=== PATIENT | female | born 1975 | race Caucasian/White ===

== ENCOUNTER → 2016-05-07 | Outpatient (CLI) | payer BC ==
[2016-05-07 15:47] LABS: Appearance,Urine Clear (Clear); Bilirubin,Urine Negative (Negative); Glucose,Urine (UA) Negative (Negative); Ketones,Urine Negative (Negative); Leukocyte Esterase,Urine Negative (Negative); Mucus,Urine Rare /hpf; Nitrite,Urine Negative (Negative); Particle Count 5275; Protein,Urine Trace (Negative); RBC,Urine >182 /hpf (0-5); Specific Gravity,Urine 1.017 (1.001-1.035); Squamous Epithelial Cell,Urine <1 /hpf (0-4); UA Billing (MACRO vs. MICRO) MICRO; Urobilinogen,Urine <2.0 mg/dL (<2.0); WBC,Urine 3 /hpf (0-5)
[2016-05-07 15:55] LABS: ALT 23 U/L (9-52); AST 17 U/L (14-36); Alkaline Phosphatase 94 U/L (38-126); Anion Gap 13 mmol/L; Blood Urea Nitrogen 13 mg/dL (7-17); Calcium 9.4 mg/dL (8.4-10.2); Carbon Dioxide 25 mmol/L (22-30); Chloride 104 mmol/L (98-107); Glucose 97 mg/dL (74-99); Non-African American GFR(MDRD) >60 (>60 ml/min/1.73 sqM); Sodium 142 mmol/L (137-145); Total Bilirubin 0.7 mg/dL (0.2-1.3); Total Protein 7.9 g/dL (6.3-8.2)
== END ==
LOC: LABWHC1 15:25
PROVIDERS: ATTEND Internal Medicine Clinical Cardiac Electrophysiology
DX: R00.2 Palpitations (principal)
CPT/HCPCS: 36415; 80053; 81001; 84443

== ENCOUNTER → 2016-06-01 | Outpatient (CLI) | payer BC ==
--- NOTE | 2016-06-01 10:12 | US ---
EXAMINATION TYPE: US abdomen complete DATE OF EXAM: 06/01/2016 8:10 AM COMPARISON: NONE CLINICAL HISTORY: R10.84 Gen Abd Pain. RLQ pain, nausea EXAM MEASUREMENTS: Liver Length: 18.4 cm Gallbladder Wall: 0.2 cm CBD: 0.6 cm Spleen: 10.2 cm Right Kidney: 12.8 x 4.4 x 6.2 cm Left Kidney: 13.0 x 5.0 x 4.7 cm Pancreas: obscured by overlying bowel content Liver: enlarged, attenuating, cystic area left lobe = 0.9 x 0.5 x 0.7cm Gallbladder: multiple stones Evidence for sonographic Beckwith's sign: No CBD: upper limits of normal Spleen: appears wnl Right Kidney: calcification upper pole = 0.7cm Left Kidney: no evidence of hydronephrosis or mass Upper IVC: wnl Abd Aorta: visualized portions appear wnl Scanned RLQ within patient's area of concern, no significant abnormality visualized by ultrasound at this time IMPRESSION: 1. Liver is heterogeneous which could be seen with hepatitis or fatty infiltration. Less than 1 cm hy poechoic lesion too small to characterize. 2. Nonobstructing right renal calculus. 3. Cholelithiasis
== END | disposition home or self-care (01) ==
LOC: RADUSWWP 07:33
PROVIDERS: ATTEND Family Medicine
DX: K80.20 Calculus of gallbladder without cholecystitis without obstruction (principal); N20.0 Calculus of kidney; K76.9 Liver disease, unspecified
CPT/HCPCS: 76700

== ENCOUNTER → 2017-05-16 | Outpatient (CLI) | payer BC ==
[2017-05-17 00:42] LABS: Anti-DNA, DS unit <1.0 IU/mL; DNA Double-Stranded NEGATIVE (NEGATIVE)
[2017-05-17 00:51] LABS: Rheumatoid Factor 5 IU/mL (0-15)
== END | disposition home or self-care (01) ==
LOC: LABWHC1 16:25
PROVIDERS: ATTEND Psychiatry & Neurology Neurology
DX: M79.1 Myalgia (principal); R59.1 Generalized enlarged lymph nodes
CPT/HCPCS: 36415; 82306; 82550; 82607; 82747; 85652; 86038; 86225; 86431; 86618

== ENCOUNTER → 2017-06-04 | Outpatient (CLI) | payer BC ==
[2017-06-04 16:34] LABS: Basophils # (A) 0.1 k/uL (0-0.2); Basophils % (A) 1 %; Eosinophils # (A) 0.2 k/uL (0-0.7); Eosinophils % (A) 2 %; HCT 39.8 % (34.0-46.0); HGB 12.9 gm/dL (11.4-16.0); Lymphocytes # (A) 2.7 k/uL (1.0-4.8); Lymphocytes % (A) 37 %; MCH 26.8 pg (25.0-35.0); MCHC 32.3 g/dL (31.0-37.0); Mean Platelet Volume 6.8; Monocytes # (A) 0.3 k/uL (0-1.0); Monocytes % (A) 4 %; Neutrophils % (A) 54 %; Platelet Count 296 k/uL (150-450); RDW 13.6 % (11.5-15.5); WBC 7.3 k/uL (3.8-10.6)
[2017-06-04 16:51] LABS: ALT 23 U/L (9-52); AST 19 U/L (14-36); Albumin 3.6 g/dL (3.5-5.0); Alkaline Phosphatase 74 U/L (38-126); Anion Gap 12 mmol/L; Blood Urea Nitrogen 16 mg/dL (7-17); Calcium 9.4 mg/dL (8.4-10.2); Carbon Dioxide 28 mmol/L (22-30); Chloride 102 mmol/L (98-107); Glucose 109 mg/dL (74-99); Potassium 3.5 mmol/L (3.5-5.1); Sodium 142 mmol/L (137-145); Total Bilirubin 0.3 mg/dL (0.2-1.3); Total Protein 6.8 g/dL (6.3-8.2)
[2017-06-04 17:08] LABS: T4, Free (Free Thyroxine) 0.92 ng/dL (0.78-2.19)
== END | disposition home or self-care (01) ==
LOC: LABWHC1 16:19
PROVIDERS: ATTEND Psychiatry & Neurology Neurology
DX: M54.5 Low back pain (principal); M54.2 Cervicalgia; R63.5 Abnormal weight gain; R59.1 Generalized enlarged lymph nodes
CPT/HCPCS: 36415; 80053; 84439; 84443; 85025

== ENCOUNTER → 2017-06-11 | Outpatient (CLI) | payer BC ==
--- NOTE | 2017-06-11 17:12 | US ---
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 Intermittent neck pain and swell ing x couple years GLAND SIZE: Right Lobe: 4.6 x 1.3 x 1.7 cm Overall Parenchyma: homogenous Left Lobe: 4.3 x 1.4 x 1.4 cm Overall Parenchyma: homogeneous Isthmus Thickness: 0.3 cm NODULES RIGHT: # of nodules measured on right: 0 LEFT: # of nodules measured on left: 2 1. 0.7 X 0.4 x 0.7 cm hypoechoic solid nodule at the upper pole with well-defined margins. This nod ule is wider than tall and shows intranodular vascularity. Prior size: no previous 2. 0.8 X 0.5 x 0.6 cm hypoechoic solid nodule at the mid pole with well-defined margins. This nodule is wider than tall and shows intranodular vascularity. Prior size: no previous ISTHMUS: # of nodules measured in the isthmus: 0 Bilateral neck scanned, bilateral hypoechoic structures seen with largest on right = 2.5cm and larges t on left = 1.8cm, probable lymph nodes. IMPRESSION: Small hypoechoic oval-shaped nodules of doubtful significance. No dominant thyroid mass. Anterior tri angle 18 x 9 mm left side cervical lymph node. 25 x 9 mm enlarged right side cervical lymph node. Lym ph nodes appear to have normal morphology.
== END | disposition home or self-care (01) ==
LOC: RADUSWWP 16:09
PROVIDERS: ATTEND Family Medicine
DX: R59.0 Localized enlarged lymph nodes (principal)
CPT/HCPCS: 76536

== ENCOUNTER → 2017-10-18 | Outpatient (CLI) | payer BC | END | disposition home or self-care (01) | LOC: LABWHC1 16:58 | PROVIDERS: ATTEND Family Medicine | DX: E04.2 Nontoxic multinodular goiter (principal); R59.0 Localized enlarged lymph nodes | CPT/HCPCS: 36415; 82533 ==

== ENCOUNTER → 2017-10-18 | Outpatient (CLI) | payer BC | END | disposition home or self-care (01) | LOC: LABWHC1 07:06 | PROVIDERS: ATTEND Family Medicine | DX: R59.9 Enlarged lymph nodes, unspecified (principal); R53.83 Other fatigue; M25.50 Pain in unspecified joint | CPT/HCPCS: 36415; 82533; 86162 ==

== ENCOUNTER → 2017-11-06 | Outpatient (CLI) | payer BC ==
[2017-11-06 16:35] LABS: Anion Gap 10 mmol/L; Blood Urea Nitrogen 17 mg/dL (7-17); Calcium 9.3 mg/dL (8.4-10.2); Carbon Dioxide 27 mmol/L (22-30); Chloride 105 mmol/L (98-107); Glucose 93 mg/dL (74-99); Magnesium 1.8 mg/dL (1.6-2.3); Potassium 4.2 mmol/L (3.5-5.1); Sodium 142 mmol/L (137-145)
== END | disposition home or self-care (01) ==
LOC: LABWHC1 15:42
PROVIDERS: ATTEND Internal Medicine Clinical Cardiac Electrophysiology
DX: I10 Essential (primary) hypertension (principal)
CPT/HCPCS: 36415; 80048; 83735

== ENCOUNTER → 2018-06-05 | Outpatient (CLI) | payer BC ==
--- NOTE | 2018-06-06 07:37 | US ---
EXAMINATION TYPE: US thyroid st tissue head/neck DATE OF EXAM: 06/05/2018 COMPARISON: US dated 06/11/2017 CLINICAL HISTORY: R59.0 Cervical lymphadenopathy; prior thyroid US/ nodules; palpables noted by patie nt at submandibular area bilaterally GLAND SIZE: Right Lobe: 3.9 x 1.3 x 1.2 cm Overall Parenchyma: homogenous Left Lobe: 4.3 x 1.4 x 1.5 cm Overall Parenchyma: homogeneous Isthmus Thickness: 0.3 cm NODULES RIGHT: # of nodules measured on right: 0 LEFT: # of nodules measured on left: 2 1. 0.5 X 0.4 x 0.4 cm hypoechoic solid nodule at the upper pole with well-defined margins. This no dule is wide as is tall and shows no intranodular vascularity. Prior size: 0.7 x 0.7 x 0.4 cm 2. 0.8 X 0.5 x 0.5 cm hypoechoic solid nodule at the mid pole with well-defined margins. This nodul e is wide as is tall and shows no intranodular vascularity. Prior size: 0.8 x 0.6 x 0.5 cm ISTHMUS: # of nodules measured in the isthmus: 0 Bilateral neck scanned: right submandibular at area of palpable an oval hypoechoic bernardo area seen = 1.0 x 1.1 x 0.4cm; at left submandibular palpable area a hypoechoic node is imaged = 1.4 x 1.2 x 0.5 cm. IMPRESSION: Benign-appearing neck ultrasound. Contrast-enhanced CT of the neck could be performed for better eval uation. Follow-up as indicated.
== END ==
LOC: RADUSWWP 16:47
PROVIDERS: ATTEND Family Medicine
DX: R59.0 Localized enlarged lymph nodes (principal)
CPT/HCPCS: 76536

== ENCOUNTER → 2018-08-08 | Outpatient (CLI) | payer BC ==
--- NOTE | 2018-08-08 12:14 | US ---
EXAMINATION TYPE: US kidneys/renal and bladder DATE OF EXAM: 08/08/2018 COMPARISON: US CLINICAL HISTORY: R31.9 Hematuria. Patient stated hematuria, noted by physician's office, was during patient's menstrual cycle; bilateral flank pain x few weeks EXAM MEASUREMENTS: Right Kidney: 11.0 x 6.6 x 4.5 cm Left Kidney: 12.4 x 5.1 x 5.0 cm Post Void Residual Volume: 0 mL Right Kidney: No hydronephrosis seen; calcified parallel vessels johnson seen in upper lateral cortex Left Kidney: No hydronephrosis or masses seen Bladder: wnl Bilateral Jets seen: yes Normal Post Void Residual: yes There is no evidence for hydronephrosis at this point in time. No nephrolithiasis is seen. No blaine s are identified. The urinary bladder is anechoic. Bilateral ureteral jets are seen. IMPRESSION: No hydronephrosis or nephrolithiasis. Renal arterial calcifications are incidentally noted.
== END | disposition home or self-care (01) ==
LOC: RADUSWWP 11:07
PROVIDERS: ATTEND Family Medicine
DX: I70.1 Atherosclerosis of renal artery (principal)
CPT/HCPCS: 76770

== ENCOUNTER → 2018-08-08 | Outpatient (CLI) | payer BC ==
--- NOTE | 2018-08-12 11:21 | MM ---
Reason for exam: screening (asymptomatic). Last mammogram was performed 1 year and 8 months ago. History: Excisional biopsy. Physical Findings: A clinical breast exam by your physician is recommended on an annual basis and results should be correlated with mammographic findings. MG 3D Screening Mammo W/Cad Bilateral CC and MLO view(s) were taken. Prior study comparison: December 18, 2016, mammogram. June 02, 2013, mammogram. There are scattered fibroglandular densities. No significant changes when compared with prior studies. ASSESSMENT: Negative, BI-RAD 1 RECOMMENDATION: Routine screening mammogram of both breasts in 1 year.
== END | disposition home or self-care (01) ==
LOC: RADMAMWWP 11:04
PROVIDERS: ATTEND Obstetrics & Gynecology
DX: Z12.31 Encounter for screening mammogram for malignant neoplasm of breast (principal)
CPT/HCPCS: 77063; 77067

== ENCOUNTER → 2018-08-21 | Outpatient (CLI) | payer BC ==
[2018-08-22 01:51] LABS: African American GFR (CKD) 123.9 (60.0-200.0)
== END | disposition home or self-care (01) ==
LOC: LABWHC1 16:32
PROVIDERS: ATTEND Otolaryngology
DX: K30 Functional dyspepsia (principal); R53.83 Other fatigue; J30.89 Other allergic rhinitis
CPT/HCPCS: 36415; 82150; 82565; 83690; 84450; 84460; 84520

== ENCOUNTER 2018-11-09 20:26 | Emergency (ER) | payer BC ==
[2018-11-09 20:39] VITALS: RESP 18
[2018-11-09] MEDS ORDERED: SODIUM CHLORIDE 0.9% 1,000 ML IV STA ×2 (21:13)
[2018-11-09] MEDS ORDERED: PANTOPRAZOLE 40 MG/10 ML VIAL IVP STA (21:13)
[2018-11-09] MEDS ORDERED: KETOROLAC 30 MG/ML 1 ML VIAL IVP STA (21:13)
[2018-11-09] MEDS ORDERED: ONDANSETRON 4 MG/2 ML VIAL IVP STA (21:13)
[2018-11-09] MEDS ORDERED: HYDROmorphone 1 MG/ML 1 ML SYRINGE IVP STA (21:14)
[2018-11-09] MEDS ORDERED: ACETAMINOPHEN TAB 500 MG TAB PO STA (21:16)
[2018-11-09 21:44] LABS: Appearance,Urine Clear (Clear); Bilirubin,Urine Negative (Negative); Blood,Urine Negative (Negative); Color,Urine Colorless; Glucose,Urine (UA) Negative (Negative); Ketones,Urine Negative (Negative); Leukocyte Esterase,Urine Negative (Negative); Nitrite,Urine Negative (Negative); PH, Urine 5.5 (5.0-8.0); Protein,Urine Negative (Negative); Specific Gravity,Urine 1.002 (1.001-1.035); Urobilinogen,Urine <2.0 mg/dL (<2.0)
[2018-11-09 21:50] LABS: Basophils # (A) 0.1 k/uL (0-0.2); Basophils % (A) 1 %; Eosinophils # (A) 0.2 k/uL (0-0.7); Eosinophils % (A) 2 %; HCT 37.8 % (34.0-46.0); HGB 12.4 gm/dL (11.4-16.0); Lymphocytes # (A) 2.5 k/uL (1.0-4.8); Lymphocytes % (A) 22 %; MCH 26.6 pg (25.0-35.0); MCHC 32.7 g/dL (31.0-37.0); MCV 81.2 fL (80.0-100.0); Monocytes # (A) 0.7 k/uL (0-1.0); Monocytes % (A) 6 %; Neutrophils # (A) 7.6 k/uL (1.3-7.7); Neutrophils % (A) 68 %; Platelet Count 269 k/uL (150-450); RBC 4.65 m/uL (3.80-5.40); RDW 14.3 % (11.5-15.5); WBC 11.2 k/uL (3.8-10.6)
[2018-11-09 21:57] LABS: INR 0.9 (<1.2); Partial Thromboplastin Time 24.7 sec (22.0-30.0); Prothrombin Time 10.1 sec (9.0-12.0)
[2018-11-09 22:11] LABS: ALT 20 U/L (9-52); AST 17 U/L (14-36); African American GFR (CKD) >90 (>60 ml/min/1.73 sqM); Albumin 3.5 g/dL (3.5-5.0); Alkaline Phosphatase 87 U/L (38-126); Amylase 43 U/L (30-110); Anion Gap 7 mmol/L; Blood Urea Nitrogen 10 mg/dL (7-17); Calcium 8.3 mg/dL (8.4-10.2); Carbon Dioxide 23 mmol/L (22-30); Chloride 107 mmol/L (98-107); Glucose 95 mg/dL (74-99); Sodium 137 mmol/L (137-145); Total Bilirubin 0.5 mg/dL (0.2-1.3); Total Protein 6.7 g/dL (6.3-8.2)
--- NOTE | 2018-11-09 22:21 | ED ---
Abdominal Pain HPI - General Chief Complaint: Abdominal Pain Stated Complaint: Abd pain Time Seen by Provider: 11/09/18 20:46 Source: patient, RN notes reviewed, old records reviewed Mode of arrival: ambulatory Limitations: no limitations - History of Present Illness Initial Comments: This Patient is a 43-year-old female presents emergency department today with 3 days of right lower quadrant and right flank pain. Patient reports that she went to urgent care and they diagnosed her with muscle spasm. Reports over the trace amount hematuria in her urine sample. Patient states that she's had a low-grade temperature. No nausea or vomiting. She reports she has history of IBS and frequent fluctuation between soft and hard stools. - Related Data Previous Rx's Medication Instructions Recorded HYDROcodone/APAP 5-325MG [Saxon 1 tab PO Q6HR PRN #10 tab 11/09/18 5-325] Allergies Allergy/AdvReac Type Severity Reaction Status Date / Time Penicillins Allergy Unknown Verified 11/09/18 20:39 Childhood Sulfa (Sulfonamide Allergy Rash/Hives Verified 11/09/18 20:40 Antibiotics) sulfamethoxazole Allergy Unknown Verified 11/09/18 20:40 [From Bactrim] Childhood trimethoprim [From Bactrim] Allergy Unknown Verified 11/09/18 20:40 Childhood Review of Systems ROS Statement: Those systems with pertinent positive or pertinent negative responses have been documented in the HPI. ROS Other: All systems not noted in ROS Statement are negative. Past Medical History Past Medical History: Hypertension History of Any Multi-Drug Resistant Organisms: None Reported Past Surgical History: Cardiac Ablation, Section, Cholecystectomy Additional Past Surgical History / Comment(s): d&c, ep study, lumpectomy Past Psychological History: No Psychological Hx Reported Smoking Status: Never smoker Past Alcohol Use History: None Reported Past Drug Use History: None Reported General Exam Limitations: no limitations General appearance: alert, in no apparent distress Head exam: Present: atraumatic, normocephalic, normal inspection Eye exam: Present: normal appearance, PERRL, EOMI. Absent: scleral icterus, conjunctival injection, periorbital swelling ENT exam: Present: normal exam, mucous membranes moist Neck exam: Present: normal inspection. Absent: tenderness, meningismus, lymphadenopathy Respiratory exam: Present: normal lung sounds bilaterally. Absent: respiratory distress, wheezes, rales, rhonchi, stridor Cardiovascular Exam: Present: regular rate, normal rhythm, normal heart sounds. Absent: systolic murmur, diastolic murmur, rubs, gallop, clicks GI/Abdominal exam: Present: soft, tenderness (RLQ tenderness), normal bowel sounds. Absent: distended, guarding, rebound, rigid Extremities exam: Present: normal inspection, full ROM, normal capillary refill. Absent: tenderness, pedal edema, joint swelling, calf tenderness Back exam: Present: normal inspection Neurological exam: Present: alert, oriented X3, CN II-XII intact Psychiatric exam: Present: normal affect, normal mood Skin exam: Present: warm, dry, intact, normal color. Absent: rash Course Vital Signs 11/09/18 11/09/18 11/09/18 20:34 21:49 22:32 Temperature 99.5 F 100 F H 99.4 F Pulse Rate 93 93 84 Respiratory 18 18 18 Rate Blood Pressure 128/78 134/93 134/93 O2 Sat by Pulse 99 99 100 Oximetry 11/10/18 00:07 Temperature 98.9 F Pulse Rate 88 Respiratory 18 Rate Blood Pressure 130/74 O2 Sat by Pulse 100 Oximetry Medical Decision Making - Medical Decision Making Patient's a 43-year-old female presents emergency of right lower quadrant abdominal pain. This time and is signs are stable. She doesn't tenderness on exam. Patient was found have a low-grade temperature. Patient CT of pelvis is evidence of a right ovarian follicle rupture. Likely source pain. No sign of appendicitis. Patient will be discharged at this time with follow up with [facility] and PCP. - Lab Data Result diagrams: 11/09/18 21:34 11/09/18 21:34 Lab Results 11/09/18 11/09/18 11/09/18 Range/Units 21:22 21:22 21:34 WBC (3.8-10.6) k/uL RBC (3.80-5.40) m/uL Hgb (11.4-16.0) gm/dL Hct (34.0-46.0) % MCV (80.0-100.0) fL MCH (25.0-35.0) pg MCHC (31.0-37.0) g/dL RDW (11.5-15.5) % Plt Count (150-450) k/uL Neutrophils % % Lymphocytes % % Monocytes % % Eosinophils % % Basophils % % Neutrophils # (1.3-7.7) k/uL Lymphocytes # (1.0-4.8) k/uL Monocytes # (0-1.0) k/uL Eosinophils # (0-0.7) k/uL Basophils # (0-0.2) k/uL PT (9.0-12.0) sec INR (<1.2) APTT (22.0-30.0) sec Sodium 137 (137-145) mmol/L Potassium 4.0 (3.5-5.1) mmol/L Chloride 107 (98-107) mmol/L Carbon Dioxide 23 (22-30) mmol/L Anion Gap 7 mmol/L BUN 10 (7-17) mg/dL Creatinine 0.57 (0.52-1.04) mg/dL Est GFR (CKD-EPI)AfAm >90 (>60 ml/min/1.73 sqM) Est GFR (CKD-EPI)NonAf >90 (>60 ml/min/1.73 sqM) Glucose 95 (74-99) mg/dL Plasma Lactic Acid Jose (0.7-2.0) mmol/L Calcium 8.3 L (8.4-10.2) mg/dL Total Bilirubin 0.5 (0.2-1.3) mg/dL AST 17 (14-36) U/L ALT 20 (9-52) U/L Alkaline Phosphatase 87 (38-126) U/L Total Protein 6.7 (6.3-8.2) g/dL Albumin 3.5 (3.5-5.0) g/dL Amylase 43 (30-110) U/L Lipase 51 (23-300) U/L Urine Color Colorless Urine Appearance Clear (Clear) Urine pH 5.5 (5.0-8.0) Ur Specific [place] 1.002 (1.001-1.035) Urine Protein Negative (Negative) Urine Glucose (UA) Negative (Negative) Urine Ketones Negative (Negative) Urine Blood Negative (Negative) Urine Nitrite Negative (Negative) Urine Bilirubin Negative (Negative) Urine Urobilinogen <2.0 (<2.0) mg/dL Ur Leukocyte Esterase Negative (Negative) Urine HCG, Qual Not Detected (Not Detectd) 11/09/18 11/09/18 11/09/18 Range/Units 21:34 21:34 21:34 WBC 11.2 H (3.8-10.6) k/uL RBC 4.65 (3.80-5.40) m/uL Hgb 12.4 (11.4-16.0) gm/dL Hct 37.8 (34.0-46.0) % MCV 81.2 (80.0-100.0) fL MCH 26.6 (25.0-35.0) pg MCHC 32.7 (31.0-37.0) g/dL RDW 14.3 (11.5-15.5) % Plt Count 269 (150-450) k/uL Neutrophils % 68 % Lymphocytes % 22 % Monocytes % 6 % Eosinophils % 2 % Basophils % 1 % Neutrophils # 7.6 (1.3-7.7) k/uL Lymphocytes # 2.5 (1.0-4.8) k/uL Monocytes # 0.7 (0-1.0) k/uL Eosinophils # 0.2 (0-0.7) k/uL Basophils # 0.1 (0-0.2) k/uL PT 10.1 (9.0-12.0) sec INR 0.9 (<1.2) APTT 24.7 (22.0-30.0) sec Sodium (137-145) mmol/L Potassium (3.5-5.1) mmol/L Chloride (98-107) mmol/L Carbon Dioxide (22-30) mmol/L Anion Gap mmol/L BUN (7-17) mg/dL Creatinine (0.52-1.04) mg/dL Est GFR (CKD-EPI)AfAm (>60 ml/min/1.73 sqM) Est GFR (CKD-EPI)NonAf (>60 ml/min/1.73 sqM) Glucose (74-99) mg/dL Plasma Lactic Acid Jose 0.8 (0.7-2.0) mmol/L Calcium (8.4-10.2) mg/dL Total Bilirubin (0.2-1.3) mg/dL AST (14-36) U/L ALT (9-52) U/L Alkaline Phosphatase (38-126) U/L Total Protein (6.3-8.2) g/dL Albumin (3.5-5.0) g/dL Amylase (30-110) U/L Lipase (23-300) U/L Urine Color Urine Appearance (Clear) Urine pH (5.0-8.0) Ur Specific [place] (1.001-1.035) Urine Protein (Negative) Urine Glucose (UA) (Negative) Urine Ketones (Negative) Urine Blood (Negative) Urine Nitrite (Negative) Urine Bilirubin (Negative) Urine Urobilinogen (<2.0) mg/dL Ur Leukocyte Esterase (Negative) Urine HCG, Qual (Not Detectd) - Radiology Data Radiology results: report reviewed Fatty infiltration of liver. Thanks is normal. Diverticulosis without radiographic evidence of diverticula is. Recently ruptured right ovarian follicle. Disposition Clinical Impression: Ovarian cyst rupture Disposition: HOME SELF-CARE Condition: Good Instructions (If sedation given, give patient instructions): Ruptured Ovarian Cyst (ED) Additional Instructions: Please use medication as discussed. Please follow up with family doctor if symptoms have not improved over the next two days. Recommended following up with [facility]. Please return to the emergency room if your symptoms increase or worsen or for any other concerns. Prescriptions: HYDROcodone/APAP 5-325MG [Saxon 5-325] 1 tab PO Q6HR PRN #10 tab PRN Reason: Pain Is patient prescribed a controlled substance at d/c from ED?: Yes If prescribed controlled substance>3 days was MAPS reviewed?: Prescribed <3 Days If opioid is for acute pain is fill amount 7 days or less?: Yes If Rx opioid, was Start Talking consent form obtained?: Yes Referrals: Luis Ibarra MD [Primary Care Provider] - 1-2 days Time of Disposition: 23:31
--- NOTE | 2018-11-09 22:34 | CT ---
EXAM: CT Abdomen and Pelvis With Intravenous Contrast CLINICAL HISTORY: ITS.REASON CT Reason: RLQ flank pain TECHNIQUE: Axial computed tomography images of the abdomen and pelvis with intravenous contrast. CTDI is 21.6 mGy and DLP is 779.1 mGy-cm. This CT exam was performed using one or more of the following dose reduction techniques: automated exposure control, adjustment of the mA and/or kV according to patient size, and/or use of iterative reconstruction technique. COMPARISON: 12/28/2016. FINDINGS: Lung bases: Unremarkable. No mass. No consolidation. ABDOMEN: Liver: Mild fatty infiltration of the liver. Gallbladder and bile ducts: Status post cholecystectomy No ductal dilation. Pancreas: Unremarkable. No mass. No ductal dilation. Spleen: Unremarkable. No splenomegaly. Adrenals: Unremarkable. No mass. Kidneys and ureters: No hydronephrosis. Stomach and bowel: Diverticulosis without radiographic evidence of diverticulitis. No obstruction. PELVIS: Appendix: The appendix is seen on series 202 image 54 and is unremarkable. Bladder: Unremarkable. No mass. Reproductive: 1.2 cm recently ruptured follicle of the right ovary best seen on series 201 image 65. ABDOMEN and PELVIS: Intraperitoneal space: Unremarkable. No free air. No significant fluid collection. Bones/joints: Mild degenerative disc disease of the spinal column. Mild osteoarthritic changes of the sacroiliac joints. No acute fracture. No dislocation. Soft tissues: Unremarkable. Vasculature: Pelvic phleboliths. No abdominal aortic aneurysm. Lymph nodes: Unremarkable. No enlarged lymph nodes. IMPRESSION: Fatty infiltration of the liver. The appendix is normal. Diverticulosis without radial graphic evidence of diverticulitis. Recently ruptured right ovarian follicle.
[2018-11-10 00:09] VITALS: BP 130/74; PULSE 88; TEMP 98.9
== END 2018-11-10 00:11 | disposition home or self-care (01) ==
LOC: EC 20:26
DX: N83.201 Unspecified ovarian cyst, right side (principal); Z88.0 Allergy status to penicillin; Z88.1 Allergy status to other antibiotic agents; Z88.2 Allergy status to sulfonamides; Z90.49 Acquired absence of other specified parts of digestive tract
CPT/HCPCS: 36415; 80053; 82150; 83605; 83690; 85025; 85610; 85730; 81003; 81025; 87040; 74177; 99284; 96374; 96375; 96361 ×2; J2405; J1885; Q9967

== ENCOUNTER 2019-04-18 18:19 | Emergency (ER) | payer BC ==
[2019-04-18] MEDS ORDERED: SODIUM CHLORIDE 0.9% 1,000 ML IV STA (19:37)
--- NOTE | 2019-04-18 19:37 | ED ---
Chest Pain HPI - General Chief Complaint: Chest Pain Stated Complaint: Chest Pain Time Seen by Provider: 04/18/19 18:48 Source: patient, RN notes reviewed, old records reviewed Mode of arrival: ambulatory Limitations: no limitations - History of Present Illness MD Complaint: chest pain -: hour(s) Onset: during rest Pain Location: left chest, epigastric Severity: mild Severity scale (1-10): 3 Quality: aching Consistency: intermittent Improves With: nothing Worsens With: nothing Context: recent illness Other Symptoms: palpitations Treatments Prior to Arrival: none - Related Data Previous Rx's Medication Instructions Recorded HYDROcodone/APAP 5-325MG [[place] 1 tab PO Q6HR PRN #10 tab 11/09/18 5-325] Allergies Allergy/AdvReac Type Severity Reaction Status Date / Time Penicillins Allergy Unknown Verified 04/18/19 18:30 Childhood Sulfa (Sulfonamide Allergy Rash/Hives Verified 04/18/19 18:30 Antibiotics) sulfamethoxazole Allergy Unknown Verified 04/18/19 18:30 [From Bactrim] Childhood trimethoprim [From Bactrim] Allergy Unknown Verified 04/18/19 18:30 Childhood Review of Systems ROS Statement: Those systems with pertinent positive or pertinent negative responses have been documented in the HPI. ROS Other: All systems not noted in ROS Statement are negative. Past Medical History Past Medical History: Hypertension Additional Past Medical History / Comment(s): SVT History of Any Multi-Drug Resistant Organisms: None Reported Past Surgical History: Cardiac Ablation, Section, Cholecystectomy Additional Past Surgical History / Comment(s): d&c, ep study, lumpectomy Past Psychological History: Anxiety Smoking Status: Never smoker Past Alcohol Use History: None Reported Past Drug Use History: None Reported General Exam Limitations: no limitations General appearance: alert, in no apparent distress Head exam: Present: atraumatic, normocephalic, normal inspection Eye exam: Present: normal appearance, PERRL, EOMI. Absent: scleral icterus, conjunctival injection, periorbital swelling ENT exam: Present: normal exam, mucous membranes moist Neck exam: Present: normal inspection. Absent: tenderness, meningismus, lymphadenopathy Respiratory exam: Present: normal lung sounds bilaterally. Absent: respiratory distress, wheezes, rales, rhonchi, stridor Cardiovascular Exam: Present: normal rhythm, tachycardia, normal heart sounds. Absent: systolic murmur, diastolic murmur, rubs, gallop, clicks GI/Abdominal exam: Present: soft, normal bowel sounds. Absent: distended, tenderness, guarding, rebound, rigid Extremities exam: Present: normal inspection, full ROM, normal capillary refill. Absent: tenderness, pedal edema, joint swelling, calf tenderness Back exam: Present: normal inspection Neurological exam: Present: alert, oriented X3, CN II-XII intact Psychiatric exam: Present: normal affect, normal mood Skin exam: Present: warm, dry, intact, normal color. Absent: rash Course Vital Signs 04/18/19 04/18/19 18:27 20:30 Temperature 98.4 F 98.5 F Pulse Rate 103 H 90 Respiratory 20 18 Rate Blood Pressure 146/91 135/98 O2 Sat by Pulse 99 98 Oximetry Disposition Clinical Impression: Chest pain, Atypical chest pain, Paresthesia Disposition: HOME SELF-CARE Instructions (If sedation given, give patient instructions): Chest Pain (ED), Paresthesia (ED) Is patient prescribed a controlled substance at d/c from ED?: No Referrals: Luis Ibarra MD [Primary Care Provider] - 1-2 days
[2019-04-18 19:47] LABS: Basophils # (A) 0.2 k/uL (0-0.2); Basophils % (A) 2 %; Eosinophils # (A) 0.2 k/uL (0-0.7); Eosinophils % (A) 2 %; Lymphocytes % (A) 21 %; MCH 26.2 pg (25.0-35.0); MCHC 31.9 g/dL (31.0-37.0); MCV 82.3 fL (80.0-100.0); Mean Platelet Volume 7.7; Monocytes # (A) 0.5 k/uL (0-1.0); Monocytes % (A) 5 %; Neutrophils # (A) 6.5 k/uL (1.3-7.7); Neutrophils % (A) 68 %; Platelet Count 338 k/uL (150-450); RBC 4.98 m/uL (3.80-5.40); RDW 14.3 % (11.5-15.5); WBC 9.6 k/uL (3.8-10.6)
[2019-04-18 19:57] LABS: ALT 21 U/L (4-34); AST 25 U/L (14-36); African American GFR (CKD) >90 (>60 ml/min/1.73 sqM); Albumin 3.8 g/dL (3.5-5.0); Alkaline Phosphatase 89 U/L (38-126); Anion Gap 8 mmol/L; Blood Urea Nitrogen 10 mg/dL (7-17); Calcium 8.9 mg/dL (8.4-10.2); Carbon Dioxide 27 mmol/L (22-30); Chloride 101 mmol/L (98-107); Glucose 91 mg/dL (74-99); Magnesium 1.8 mg/dL (1.6-2.3); Non-African American GFR(CKD) >90 (>60 ml/min/1.73 sqM); Potassium 4.3 mmol/L (3.5-5.1); Sodium 136 mmol/L (137-145); Total Bilirubin 0.7 mg/dL (0.2-1.3); Total Protein 7.2 g/dL (6.3-8.2)
[2019-04-18 20:04] LABS: Appearance,Urine Clear (Clear); Bacteria,Urine Rare /hpf; Bilirubin,Urine Negative (Negative); Blood,Urine Small (Negative); Color,Urine Light Yellow; Glucose,Urine (UA) Negative (Negative); Ketones,Urine Negative (Negative); Leukocyte Esterase,Urine Negative (Negative); Mucus,Urine Rare /hpf; Nitrite,Urine Negative (Negative); PH, Urine 5.5 (5.0-8.0); Protein,Urine Negative (Negative); RBC,Urine 14 /hpf (0-5); Specific Gravity,Urine 1.011 (1.001-1.035); Squamous Epithelial Cell,Urine <1 /hpf (0-4); Urobilinogen,Urine <2.0 mg/dL (<2.0); WBC,Urine <1 /hpf (0-5)
--- NOTE | 2019-04-18 20:48 | XR ---
EXAMINATION TYPE: XR chest 2V DATE OF EXAM: 04/18/2019 COMPARISON: NONE HISTORY: Chest pain TECHNIQUE: FINDINGS: Heart and mediastinum are normal. There is a possible small infiltrate inferior to the righ t pulmonary hilum. The other lung saavedra are clear. There are chest leads. Bony thorax is intact. IMPRESSION: Possible small right infrahilar infiltrate. Normal heart.
[2019-04-18 21:04] VITALS: BP 135/98; PULSE 90; RESP 18; TEMP 98.5
== END 2019-04-18 21:38 | disposition home or self-care (01) ==
LOC: EC 18:19
DX: R07.89 Other chest pain (principal); R20.2 Paresthesia of skin; I10 Essential (primary) hypertension; Z88.0 Allergy status to penicillin; Z88.2 Allergy status to sulfonamides; Z88.1 Allergy status to other antibiotic agents; Z86.79 Personal history of other diseases of the circulatory system; Z98.890 Other specified postprocedural states
CPT/HCPCS: 36415; 71046; 80053; 81001; 83735; 83970; 84100; 84443; 84484; 85025; 93005; 99285

== ENCOUNTER → 2019-04-30 | Outpatient (CLI) | payer BC | END | disposition home or self-care (01) | LOC: LABWHC1 16:02 | PROVIDERS: ATTEND Physician Assistant | DX: I10 Essential (primary) hypertension (principal); R00.2 Palpitations | CPT/HCPCS: 36415; 82533; 83835 ==

== ENCOUNTER → 2020-03-10 | Outpatient (CLI) | payer OTHER ==
--- NOTE | 2020-03-11 12:03 | MM ---
Reason for exam: screening (asymptomatic). Last mammogram was performed 1 year and 7 months ago. History: Excisional biopsy. Physical Findings: A clinical breast exam by your physician is recommended on an annual basis and results should be correlated with mammographic findings. MG 3D Screening Mammo W/Cad Bilateral CC, MLO, and XCCL view(s) were taken. Prior study comparison: August 08, 2018, bilateral MG 3d screening mammo w/cad. December 18, 2016, mammogram. The breast tissue is heterogeneously dense. This may lower the sensitivity of mammography. No significant changes when compared with prior studies. ASSESSMENT: Benign, BI-RAD 2 RECOMMENDATION: Routine screening mammogram of both breasts in 1 year.
== END | disposition home or self-care (01) ==
LOC: RADMAMWWP 07:07
PROVIDERS: ATTEND Obstetrics & Gynecology
DX: Z12.31 Encounter for screening mammogram for malignant neoplasm of breast (principal)
CPT/HCPCS: 77063; 77067

== ENCOUNTER → 2020-03-11 | Outpatient (CLI) | payer OTHER ==
[2020-03-11 07:18] LABS: Basophils # (A) 0.1 k/uL (0-0.2); Basophils % (A) 1 %; Eosinophils # (A) 0.1 k/uL (0-0.7); Eosinophils % (A) 2 %; HCT 42.8 % (34.0-46.0); HGB 13.5 gm/dL (11.4-16.0); Hypochromasia Slight; Lymphocytes # (A) 2.2 k/uL (1.0-4.8); Lymphocytes % (A) 27 %; MCH 26.2 pg (25.0-35.0); MCHC 31.5 g/dL (31.0-37.0); MCV 83.1 fL (80.0-100.0); Mean Platelet Volume 7.2; Monocytes # (A) 0.5 k/uL (0-1.0); Monocytes % (A) 7 %; Neutrophils % (A) 62 %; Platelet Count 322 k/uL (150-450); RBC 5.16 m/uL (3.80-5.40); RDW 15.2 % (11.5-15.5); WBC 8.1 k/uL (3.8-10.6)
[2020-03-11 07:23] LABS: ALT 18 U/L (4-34); AST 18 U/L (14-36); African American GFR (CKD) >90 (>60 ml/min/1.73 sqM); Albumin 3.8 g/dL (3.5-5.0); Alkaline Phosphatase 94 U/L (38-126); Anion Gap 8 mmol/L; Blood Urea Nitrogen 16 mg/dL (7-17); Carbon Dioxide 26 mmol/L (22-30); Chloride 106 mmol/L (98-107); Glucose 105 mg/dL (74-99); Non-African American GFR(CKD) >90 (>60 ml/min/1.73 sqM); Potassium 4.2 mmol/L (3.5-5.1); Sodium 140 mmol/L (137-145); Total Bilirubin 0.5 mg/dL (0.2-1.3); Total Protein 7.2 g/dL (6.3-8.2)
--- NOTE | 2020-03-11 07:50 | CT ---
EXAMINATION TYPE: CT soft tissue neck w con DATE OF EXAM: 03/11/2020 HISTORY: Bilateral cervical lymphadenopathy COMPARISON: NONE CT DLP: 594.5 mGycm. Automated Exposure Control for Dose Reduction was Utilized. TECHNIQUE: CT scan of the neck is performed with IV Contrast, patient injected with 100 mL of Isovue 300, axial images are obtained, coronal and sagittal reformatted images are reviewed. FINDINGS: Airway: No gross abnormality seen. Parotid/submandibular glands: No gross abnormality seen. Carotid/Vascular Structures: There is bovine type aortic arch which is normal variant. No significant plaque or stenosis at carotid bulb level bilaterally. Osseous Structures: The spine is straightened. Other: Prominent but predominantly subcentimeter lymph nodes are scattered through the neck bilateral ly. For reference one of larger lymph nodes left neck submandibular region measures 1.3 x 1.0 cm axia l image 67. The parapharyngeal fat spaces are maintained. No suspicious bilateral axillary or supracl avicular adenopathy is noted. IMPRESSION: Slightly prominent but subcentimeter bilateral neck lymph nodes greater in size at the pollard bmandibular level. No surrounding inflammatory change. No suspicious mass clearly seen.
[2020-03-11 17:00] LABS: Ferritin 25.6 ng/mL (10.0-291.0)
[2020-03-11 17:14] LABS: % Iron Saturation 8.17 (12.00-45.00); Iron 30 ug/dL (50-170); Total Iron Binding Capacity 367 ug/dL (228-460)
== END | disposition home or self-care (01) ==
LOC: RADCTMAIN 06:47
PROVIDERS: ATTEND Family Medicine
DX: R59.0 Localized enlarged lymph nodes (principal)
CPT/HCPCS: 80053; 82728; 83540; 83550; 85025; 70491; 36415; Q9967

== ENCOUNTER 2021-03-24 06:17 | Day surgery (SDC) | payer OTHER ==
[2021-03-21 08:40] VITALS: BMI 30.4
--- NOTE | 2021-03-23 07:24 | P.HPOB ---
History of Present Illness H&P Date: 03/23/21 Chief Complaint: Family planning and menorrhagia This is a 45-year-old 3 para 2 female who presents for requested tubal cauterization for permanent sterilization and also requesting NovaSure endometrial ablation secondary to long-standing menorrhagia. Patient's history is such that she was her long-term however most recently and is now wanting permanent sterilization for control. Patient also states that her menstrual cycles are heavy and long and she does not want to do anything hormonal for this is requesting ablation. Patient's evaluation has included a pelvic ultrasound which was normal. Review of Systems Genitourinary: Reports menorrhagia Past Medical History Past Medical History: Hypertension, Sleep Apnea/CPAP/BIPAP, Supraventricular Tachycardia (SVT) Additional Past Medical History / Comment(s): anemia, heavy menstral periods, had COVID 06/2020 History of Any Multi-Drug Resistant Organisms: None Reported Past Surgical History: Breast Surgery, Cardiac Ablation, Section, Cholecystectomy, EPS, Joint Replacement Additional Past Surgical History / Comment(s): d&c, rt breast lumpectomy, oral surgery, colonsocopy Additional Past Anesthesia/Blood Transfusion Reaction / Comment(s): "mophiine makes me real groggy and dizzy" Past Psychological History: Anxiety, Depression Smoking Status: Former smoker Past Alcohol Use History: None Reported Past Drug Use History: None Reported - Past Family History Mother Family Medical History: Cancer Medications and Allergies Home Medications Medication Instructions Recorded Confirmed Type Losartan Potassium [Cozaar] 100 mg PO 1100 03/21/21 03/21/21 History buPROPion XL [Wellbutrin XL] 150 mg PO 1100 03/21/21 03/21/21 History Allergies Allergy/AdvReac Type Severity Reaction Status Date / Time morphine Allergy "groggy Verified 03/21/21 08:53 for long time after" Penicillins Allergy Unknown Verified 03/21/21 08:28 Childhood Sulfa (Sulfonamide Allergy Rash/Hives/nausea/"tongue Verified 03/21/21 08:28 Antibiotics) issues" sulfamethoxazole Allergy Unknown Verified 03/21/21 08:28 [From Bactrim] trimethoprim [From Bactrim] Allergy Unknown Verified 03/21/21 08:28 Exam - OBG Physical Exam Abdomen: bowel sounds normal, no diffuse tenderness, no bruit present, no guarding noted, no hepatomegaly, no splenomegaly, no mass Vulva: both: normal Vagina: normal moisture, no discharge Cervix: no lesion, no discharge Uterus: normal size, normal contour Results Transvaginal ultrasound was completely normal Assessment and Plan Assessment: This is a 45-year-old 3 para 2 female with long-standing menorrhagia requesting endometrial ablation and also requesting permanent sterilization by fallopian tube cauterization. Plan is laparoscopic bilateral fallopian tube cauterization and hysteroscopy with D&C and NovaSure endometrial ablation. The patient and I have discussed the surgery is in detail. She understands that laparoscopic surgery and apparently has risks including risks of infection, bleeding, possible injury to bowel, bladder, vessels, and other organs and this may require further surgeries. Patient also understands that alternatives exist to the surgery that are less invasive. She also understands that endometrial ablation has risks of infection, bleeding, possible uterine perforation, and/or thermal injury. All the patient's questions are answered and a written consent is obtained. (1) Menorrhagia Status: Acute Code(s): N92.0 - EXCESSIVE AND FREQUENT MENSTRUATION WITH REGULAR CYCLE SNOMED Code(s): 415870337 (2) Family planning Status: Acute Code(s): Z30.09 - ENCOUNTER FOR OTH GENERAL CNSL AND ADVICE ON CONTRACEPTION SNOMED Code(s): 156622517
[~2021-03-24 06:17] MED LIST: DEXAMETHASONE SOD PHOSPHATE 4 MG/ML 1 ML VIAL IV ONE; LACTATED RINGERS 1,000 ML IV SCH; MIDAZOLAM 2 MG/2 ML VIAL IV PRN; ONDANSETRON 4 MG/2 ML VIAL IVP ONE; Pre Op ABX Message 1 EACH MISC MISCELLANE ONE; SCOPOLAMINE 1.5MG/72HR PATCH TRANSDERM ONE
[2021-03-24] MEDS ORDERED: LIDOCAINE 1% (10MG/ML) FOR IV START INTRADERMA ONE (06:54)
[2021-03-24] MEDS ORDERED: fentaNYL (PF) 50 MCG/ML 2 ML AMP IV PRN (07:00)
[2021-03-24 07:12] LABS: Basophils # (A) 0.1 k/uL (0-0.2); Basophils % (A) 1 %; Eosinophils # (A) 0.1 k/uL (0-0.7); Eosinophils % (A) 2 %; HGB 13.3 gm/dL (11.4-16.0); Lymphocytes # (A) 1.4 k/uL (1.0-4.8); Lymphocytes % (A) 26 %; MCH 28.6 pg (25.0-35.0); MCHC 31.6 g/dL (31.0-37.0); MCV 90.5 fL (80.0-100.0); Mean Platelet Volume 7.1; Monocytes # (A) 0.4 k/uL (0-1.0); Monocytes % (A) 6 %; Neutrophils # (A) 3.6 k/uL (1.3-7.7); Neutrophils % (A) 63 %; Platelet Count 284 k/uL (150-450); RBC 4.65 m/uL (3.80-5.40); RDW 13.6 % (11.5-15.5); WBC 5.6 k/uL (3.8-10.6)
[2021-03-24] MEDS ORDERED: LIDOCAINE 1% INJ 10MG/ML (20 ML MDV) ONE (07:25)
[2021-03-24] MEDS ORDERED: GLYCOPYRROLATE 0.2 MG/ML 2 ML VIAL ONE (07:25)
[2021-03-24] MEDS ORDERED: PROPOFOL 10 MG/ML 20 ML VIAL IV ONE (07:25)
[2021-03-24] MEDS ORDERED: SUCCINYLCHOLINE CHLORIDE 100 MG/5 ML SYR IV ONE (07:25)
[2021-03-24] MEDS ORDERED: ROCURONIUM 10 MG/ML (5 ML VIAL) IV ONE (07:25)
[2021-03-24] MEDS ORDERED: fentaNYL (PF) 50 MCG/ML 2 ML AMP ONE (07:25)
[2021-03-24] MEDS ORDERED: NEOSTIGMINE 1 MG/ML 10 ML VIAL ONE (07:25)
[2021-03-24] MEDS ORDERED: MIDAZOLAM 2 MG/2 ML VIAL ONE (07:25)
[2021-03-24] MEDS ORDERED: BUPIVACAINE (PF) 0.5% 30 ML VIAL SQ ONE (07:56)
[2021-03-24 08:32] VITALS: TEMP 97.8
--- NOTE | 2021-03-24 08:33 | P.OP ---
Date of Procedure: 03/24/21 Preoperative Diagnosis: #1: Multi parity desires permanent sterilization. #2: Menorrhagia Postoperative Diagnosis: Same Procedure(s) Performed: #1: Laparoscopic bilateral fallopian tube cauterization. #2: Hysteroscopy #3: Dilation and curettage. #4: NovaSure endometrial ablation. Anesthesia: GETA Surgeon: Alex Alonzo Estimated Blood Loss (ml): 20 Urine output (ml): 10 Pathology: other (Uterine curettings) Condition: stable Disposition: PACU Indications for Procedure: Please see dictated H&P for intimate details of this patient's admission. In brief summary this is a pleasant 45-year-old multigravida patient who most recently has gone through a divorce and now is requesting laparoscopic tubal cauterization for family planning. She also has long-standing menorrhagia and is requesting NovaSure endometrial ablation for treatment. Jose Luis Firas discussed the fact that a tubal ligation is considered permanent although does have a failure rate of approximately less than 5 per thousand procedures done. She understands if she does become she has a 50% chance of a tubal or an ectopic . She also understands a laparoscopic surgery and apparently has risks including risks of infection, bleeding, possible injury bowel, bladder, vessels, and/or other organs. Patient I discussed the NovaSure device and D&C and she understands this also has risks of infection or bleeding and/or thermal injury. All the patient's questions are answered and a written consent is obtained. Operative Findings: This patient had a normal-appearing uterus and fallopian tubes and ovaries. Description of Procedure: This patient is taken to the operating room where she is laid in the supine position. She subsequently undergoes general endotracheal anesthesia without incident. With adequate level of anesthesia, she's placed in the dorsal lithotomy position. She has an abdominal, vaginal, perineal prep and drape. First good on below placed a bivalve speculum into the vagina. The anterior lip of the cervix is grabbed with an Allis clamp. A small acorn cannula is then placed into the endocervix. A red Oro cath is placed into the bladder and 10 mL of urine was draining is locked continuously drain. With this done I then changed gloves and go up above. I make a 10 mm infraumbilical incision through the previous cholecystectomy scar. Through this a 10 mm bladed lists optical trochars placed directly into the peritoneum. Peritoneal placement is confirmed and pneumoperitoneum is created to 12 mm of carbon dioxide gas. With this done the patient is placed in Trendelenburg position. I make a 5 mm incision approximate 2 finger breaths above the symphysis pubis. Through this a 5 mm bladed lists optical trochars placed. A blunt probe was then used to manipulate the uterus tubes and ovaries all appear normal. Bowel grossly appears normal. I polar cautery is then placed and grabbed the left fallopian tube approximately 4 cm from its cornual insertion and a 2 cm segment of tube was completely cauterized with bipolar cautery. Complete cauterization is noted by the volt meter. Similar technique is done on the right side with similar results. This completed then removed the lower trocar good hemostasis is noted. Pneumoperitoneum is reduced and the upper trochars reduced. The incisions are then closed using a 4-0 Vicryl interrupted fashion. Steri-Strips are applied. Half percent Marcaine are injected and both incisions for postoperative pain control and sterile dressing applied. This time ago.down below and remove the Allis clamp and acorn cannula catheter. Weighted speculum placed the posterior vagina and the anterior lip of cervix was grabbed with an Allis clamp. Uterus is then sounded to 8.5 cm. Gentle dilation is then done to allow the hysteroscope easily and the uterine cavity. Hysteroscopy is then performed with saline solution. Uterine cavity is measured a length of 5.5 cm. There is no evidence of any polyps fibroids or other growths. This completed the cervix that is slightly more to allow a small curette easily and the uterine cavity. A gentle but thorough 4 quadrant curettage is then done. With this done the NovaSure device is then opened appears to be intact is set at a length of 5.5 cm and opens up to a width of 4.0 cm. It is seated in place and then passes the cavity integrity test. It is then enabled at 121 W settings for 49 seconds. NovaSure device is then removed appears to be intact. Finally a hysteroscopy is performed again and the uterine cavity appears to be ablated up to the endocervix. At this point the procedure is ended. The Allis clamp and weighted speculum removed. Patient is awakened from anesthesia. All counts are correct 3. There are no complications patient is taken recovery room satisfactory condition.
[2021-03-24] MEDS ORDERED: KETOROLAC 15 MG/ML 1 ML VIAL IVP ONE (08:42)
[2021-03-24 09:26] VITALS: RESP 18
[2021-03-24 09:30] VITALS: BP 135/92; PULSE 77
== END 2021-03-24 10:05 | disposition home or self-care (01) ==
LOC: OR 06:17
PROVIDERS: ATTEND Obstetrics & Gynecology
DX: Z30.2 Encounter for sterilization (principal); N92.0 Excessive and frequent menstruation with regular cycle
CPT/HCPCS: 58563; 58670; 81025; 88305; 85025; J2250; J1100; J2710; J2405; J2001; J3010; J1885; J0330; J2704

== ENCOUNTER → 2021-04-19 | Outpatient (CLI) | payer OTHER ==
--- NOTE | 2021-04-20 11:02 | MM ---
Reason for exam: screening (asymptomatic). Last mammogram was performed 1 year and 1 month ago. History: Benign excisional biopsy of the right breast, 2005. Physical Findings: A clinical breast exam by your physician is recommended on an annual basis and results should be correlated with mammographic findings. MG 3D Screening Mammo W/Cad Bilateral CC and MLO view(s) were taken. Prior study comparison: March 10, 2020, bilateral MG 3d screening mammo w/cad. August 08, 2018, bilateral MG 3d screening mammo w/cad. No significant changes when compared with prior studies. ASSESSMENT: Benign, BI-RAD 2 RECOMMENDATION: Routine screening mammogram of both breasts in 1 year.
== END | disposition home or self-care (01) ==
LOC: RADMAMWWP 07:12
PROVIDERS: ATTEND Obstetrics & Gynecology
DX: Z12.31 Encounter for screening mammogram for malignant neoplasm of breast (principal)
CPT/HCPCS: 77063; 77067

== ENCOUNTER → 2022-08-24 | Outpatient (CLI) | payer BC ==
--- NOTE | 2022-08-24 16:25 | CT ---
EXAMINATION TYPE: CT abdomen pelvis wo con DATE OF EXAM: 08/24/2022 COMPARISON: 11/09/2018 HISTORY: 47-year-old female R10.31, RLQ pain x [address] DLP: 1171.7 mGycm. Automated exposure control for dose reduction was used. TECHNIQUE: Contiguous axial scanning of the abdomen and pelvis without IV contrast. Coronal and sagit yeison reconstructions performed. FINDINGS: LUNG BASES: No significant abnormality is appreciated. LIVER/GB: Liver borderline in size at 17.4 cm with mildly diminished attenuation suggesting mild fatt y infiltration. Cholecystectomy clips. PANCREAS: No significant abnormality is seen. SPLEEN: No significant abnormality is seen. ADRENALS: No significant abnormality is seen. KIDNEYS: No significant abnormality is seen. BOWEL: Normal appendix. Scattered colonic diverticulosis. No significant stool burden. No pericolonic inflammatory change. No dilated small bowel. LYMPH NODES: No significant abnormality is seen. OTHER: Tiny fatty umbilical hernia. No free fluid or free air. PELVIS: Uterus is anteverted. Both ovaries are visualized. There is a 2.5 cm dominant follicle or fun ctional cyst of the left ovary. Mild circumferential bladder wall thickening may relate to incomplete distention. Multiple pelvic phleboliths. No abnormal fluid collection in the pelvis or pelvic lympha denopathy. BONES: No significant abnormality is seen. IMPRESSION: 1. Generalized colonic diverticulosis without evidence for acute diverticulitis. 2. Mild circumferential bladder wall thickening may relate to incomplete distention. Correlate to ex clude cystitis. 3. Mild fatty infiltration of the liver. Status post cholecystectomy. 4. A 2.5 cm dominant follicle or functional cyst of the left ovary.
== END | disposition home or self-care (01) ==
LOC: RADCTMAIN 15:48
PROVIDERS: ATTEND Family Medicine
DX: K76.0 Fatty (change of) liver, not elsewhere classified (principal); K57.30 Diverticulosis of large intestine without perforation or abscess without bleeding; N83.202 Unspecified ovarian cyst, left side; Z90.49 Acquired absence of other specified parts of digestive tract
CPT/HCPCS: 74176

== ENCOUNTER → 2023-03-19 | Outpatient (CLI) | payer BC ==
[2023-03-19 10:50] LABS: Basophils # (A) 0.11 X 10*3/uL (0.00-0.10); Basophils % (A) 1.3 %; Eosinophils # (A) 0.17 X 10*3/uL (0.04-0.35); HCT 40.8 % (37.2-46.3); HGB 12.9 g/dL (12.0-15.0); Lymphocytes # (A) 2.35 X 10*3/uL (0.90-5.00); Lymphocytes % (A) 27.2 %; MCH 27.4 pg (27.0-32.0); MCHC 31.6 g/dL (32.0-37.0); MCV 86.8 FL (80.0-97.0); Mean Platelet Volume 10.3 FL (9.5-12.2); Monocytes # (A) 0.96 X 10*3/uL (0.20-1.00); Monocytes % (A) 11.1 %; NRBC Per 100 WBC 0 X 10*3/uL (0.00-0.01); Neutrophils # (A) 5.02 X 10*3/uL (1.80-7.70); Neutrophils % (A) 58.1 %; Platelet Count 312 X 10*3/uL (140-440); RDW 14.4 % (11.5-14.5); WBC 8.64 X 10*3/uL (4.50-10.00)
[2023-03-19 11:33] LABS: Erythrocyte Sedimentation Rate 58 mm/Hr (0-20)
[2023-03-19 11:37] LABS: % Iron Saturation 10.14 (12.00-45.00); ALT 14 U/L (8-44); AST 15 U/L (13-35); Albumin 3.8 g/dL (3.8-4.9); Albumin/Globulin Ratio 1.41 Ratio (1.60-3.17); Alkaline Phosphatase 104 U/L (41-126); BUN/Creat Ratio 15.71 Ratio (12.00-20.00); Calcium 9.1 mg/dL (8.7-10.3); Carbon Dioxide 23.4 mmol/L (21.6-31.8); Chloride 109 mmol/L (96-109); Chol/HDL Ratio 4.65 Ratio; Globulin 2.7 g/dL (1.6-3.3); Glucose 97 mg/dL (70-110); Iron 37 UG/DL (50-170); LDL Cholesterol,Calculated 62.3 mg/dL (0.0-131.0); Potassium 4.2 mmol/L (3.5-5.5); Sodium 143 mmol/L (135-145); Total Bilirubin <0.2 mg/dL (0.3-1.2); Total Iron Binding Capacity 365 UG/DL (228-460); Total Protein 6.5 g/dL (6.2-8.2)
== END | disposition home or self-care (01) ==
LOC: LABWHC1 07:54
PROVIDERS: ATTEND Family Medicine
DX: Z00.00 Encounter for general adult medical examination without abnormal findings (principal); K57.30 Diverticulosis of large intestine without perforation or abscess without bleeding; D50.9 Iron deficiency anemia, unspecified; E55.9 Vitamin D deficiency, unspecified
CPT/HCPCS: 36415; 80053; 80061; 82306; 82607; 83036; 83540; 83550; 84443; 85025; 85652; 86140